=== PATIENT | female | born 1980 | race Caucasian/White ===

== ENCOUNTER → 2018-12-01 | Outpatient (CLI) | payer MEDICAID ==
[~2018-12-01] MED LIST: IOPAMIDOL 76% 150 ML INFUS BTL 150 ML ONE; NS 0.9% 25 ML BAG 50 ML ONE
--- NOTE | 2018-12-01 19:15 | RADIOLOGY IMAGING REPORT ---
[place] [facility] [place] Hai Kowalski : 1980 MR: [id number] V: [id number] EXAM DATE: ORDERING PHYSICIAN: TG SCHMID TECHNOLOGIST: Location: [facility] Patient: Hai Kowalski : 1980 Visit/Account:[id number] Date of Sevice: 12/01/2018 EXAMINATION: CT CHEST PULMONARY ANGIOGRAM COMPARISON: None available HISTORY: Shortness of breath and cough PROCEDURE: Pulmonary arterial phase imaging of the chest with 75 mL intravenous Isovue 370. Reconstru ction of the source data set includes multiplanar 2D in the sagittal and coronal planes, and 3D recon structed coronal slab MIP series. One of the following dose optimization techniques was utilized in the performance of this exam: Autom ated exposure control; adjustment of the mA and/or kV according to the patient's size; or use of an i terative reconstruction technique. Specific details can be referenced in the facility's radiology C T exam operational policy. FINDINGS: Pulmonary vasculature: There is good contrast opacification of the pulmonary arterial system. No pul monary embolism. Borderline dilated 3.3 cm main pulmonary artery. Cardiac and mediastinum: Cardiac chamber size is within normal limits. No pericardial effusion. No th oracic aortic aneurysm. Lymph nodes: Negative. Lungs and pleura: No focal consolidation or pulmonary nodule. No pneumothorax, pulmonary edema, or pl eural effusion. Airways: Negative. Visualized upper abdomen: No acute findings. Osseous structures: Negative. IMPRESSION: No pulmonary embolism or evidence of acute cardiopulmonary disease. Report Dictated By: Jean Ellis MD at 12/01/2018 7:03 PM Report E-Signed By: Jean Ellis MD at 12/01/2018 7:11 PM WSN:[id number]
== END ==
LOC: CT 18:27
PROVIDERS: ATTEND Nurse Practitioner Family
DX: R06.02 Shortness of breath (principal)
CPT/HCPCS: 71275; Q9967

== ENCOUNTER → 2018-12-01 | Outpatient (REF) | payer MEDICAID ==
[2018-12-01 17:44] LABS: PLATELET COUNT, AUTOMATED 188 K/uL (150-450)
== END ==
PROVIDERS: ATTEND Nurse Practitioner Family
DX: R06.02 Shortness of breath (principal)
CPT/HCPCS: 82040; 82247; 82310; 82374; 82435; 82565; 82947; 84075; 84132; 84155; 84295; 84450; 84460; 84520; 85025; 85379

== ENCOUNTER → 2019-01-25 | Outpatient (REF) | payer MEDICAID ==
[2019-01-25 10:31] LABS: PLATELET COUNT, AUTOMATED 216 K/uL (150-450)
== END ==
PROVIDERS: ATTEND Nurse Practitioner Family
DX: R07.9 Chest pain, unspecified (principal); R05 Cough
CPT/HCPCS: 82040; 82247; 82310; 82374; 82435; 82565; 82947; 84075; 84132; 84155; 84295; 84450; 84460; 84520; 85025; 85379